=== PATIENT | female | born 1980 | race American Indian/Alaskan Native ===

== ENCOUNTER 2018-12-12 07:20 | Emergency (ER) | payer BC, OTHER ==
[2018-12-12] MEDS ORDERED: DILAUDID IV ONE ×2 (07:28→08:40)
[2018-12-12] MEDS ORDERED: TORADOL IV ONE (07:28)
[2018-12-12] MEDS ORDERED: ZOFRAN IV ONE (07:28)
--- NOTE | 2018-12-12 08:20 | XRay Report ---
RIGHT ANKLE, 3 views: History: right ankle pain after fall. Bone mineralization is normal. A complex fracture dislocation is identified. An oblique and slightly comminuted fracture is identified in the distal fibula approximately 8 cm from the ankle joint. A butterfly fragment is identified posteriorly measuring 5.3 cm. There is mild medial angulation at the fracture site measuring 16 degrees but no significant displacement. There is also a transverse fracture at the base of the medial malleolus with 1.5 cm lateral displacement. There is lateral subluxation of the talar dome with respect to the distal tibia as well. The hindfoot is grossly intact. Large plantar spur is noted. IMPRESSION: Comminuted and mildly angulated distal fibula fracture. Transverse fracture at the base of the medial malleolus with lateral subluxation of the talus.
[2018-12-12] MEDS ORDERED: AMIDATE IV ONE (08:41)
--- NOTE | 2018-12-12 08:58 | Emergency Department Report ---
ED Lower Extremity HPI - General Chief Complaint: Fall Stated Complaint: LEG INJURY/FALL Time Seen by Provider: 12/12/18 07:25 Source: patient Mode of arrival: Wheelchair Limitations: No Limitations - History of Present Illness Initial Comments: 37-year-old female with a Past medical or surgical history presents to the Hospital complains of right ankle pain status post fall. 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 The patient presents with right ankle deformity with fluids rotated externally and medial ankle abrasion. Patient denies any other pain or injury. No head injury or LOC reported. - Related Data Previous Rx's Medication Instructions Recorded Last Taken Type HYDROcodone/APAP 5-325 [[place] 1 each PO Q6HR PRN #20 tablet 12/12/18 Unknown Rx 5/325] Ibuprofen [Motrin] 800 mg PO Q8HR PRN #30 tablet 12/12/18 Unknown Rx Allergies Allergy/AdvReac Type Severity Reaction Status Date / Time No Known Allergies Allergy Unverified 12/12/18 07:43 ED Review of Systems ROS: Stated complaint: LEG INJURY/FALL Other details as noted in HPI Comment: All other systems reviewed and negative ED Past Medical Hx - Past Medical History Hx Hypertension: Yes - Surgical History Past Surgical History?: No - Social History Smoking Status: Light Tobacco Smoker Substance Use Type: None - Medications Home Medications: Home Medications Medication Instructions Recorded Confirmed Last Taken Type HYDROcodone/APAP 5-325 [[place] 1 each PO Q6HR PRN #20 tablet 12/12/18 Unknown Rx 5/325] Ibuprofen [Motrin] 800 mg PO Q8HR PRN #30 tablet 12/12/18 Unknown Rx ED Physical Exam - General Limitations: No Limitations - Other Other exam information: General: No limitations, patient is alert in no acute distress Head exam: Atraumatic, normocephalic Eyes exam: Normal appearance ENT: Moist mucous membrane, normal oropharynx Neck exam: Normal inspection, full range of motion, no meningismus nontender Respiratory exam: Clear to auscultation bilateral, no wheezes, rales, crackles Cardiovascular: Normal rate and rhythm Abdomen: Soft, nondistended, and nontender, with normal bowel sounds, no rebound, or guarding Extremity: Right ankle deformity with right foot rotated laterally and medial ankle abrasion. 2+ DP pulse Back: Normal Inspection, full range of motion, no tenderness Neurologic: Alert, oriented x3, cranial nerves intact, no motor or sensory deficit Psychiatric: normal affect, normal mood Skin: Warm, dry, intact ED Course Vital Signs 12/12/18 12/12/18 12/12/18 07:29 07:30 07:40 Temperature Temperature [ Pre-Procedure] Pulse Rate 88 Pulse Rate [Pre -Procedure] Respiratory 22 16 Rate Respiratory Rate [Pre- Procedure] Blood Pressure 143/66 143/66 Blood Pressure [Pre-Procedure] O2 Sat by Pulse 100 100 Oximetry O2 Sat by Pulse Oximetry [Pre- Procedure] 12/12/18 12/12/18 12/12/18 07:44 07:45 08:00 Temperature Temperature [ Pre-Procedure] Pulse Rate 89 97 H Pulse Rate [Pre -Procedure] Respiratory 12 25 H Rate Respiratory Rate [Pre- Procedure] Blood Pressure 143/66 147/101 Blood Pressure [Pre-Procedure] O2 Sat by Pulse 100 99 99 Oximetry O2 Sat by Pulse Oximetry [Pre- Procedure] 12/12/18 12/12/18 12/12/18 08:11 09:07 09:32 Temperature 98.7 F Temperature [ 97.8 F Pre-Procedure] Pulse Rate Pulse Rate [Pre 107 H -Procedure] Respiratory Rate Respiratory 22 Rate [Pre- Procedure] Blood Pressure Blood Pressure 162/85 [Pre-Procedure] O2 Sat by Pulse 100 Oximetry O2 Sat by Pulse 100 Oximetry [Pre- Procedure] - Consultations Consultation #1: 12/12/18 09:50 case d/w Dr Alon wright. He reviewed pre and post reduction films. follow up advised. Surgery will likely be indicated. - Moderate Sedation Indications: fracture/dislocation redu ASA Class: III Mallampati Airway Score: 1 Preparation: registered nurse cardiac applied, pulse oximeter, capnometry used, supplemental O2 applied, suction/airway equipment at bedside, IV secured IV Etomidate Dose (mgs): 10 Complications: none Interventions: oxygen applied Patient Tolerated Procedure: well - Orthopedic Splinting/Casting Injury #1 Side: right Lower Extremity Injury Location: lower leg Lower Extremity Immobilizer: posterior splint, stirrup splint Other Orthopedic Equipment: crutches ED Lower Extremity MDM - Radiology Data Radiology results: report reviewed, image reviewed (post reduction film reviewed with improved alignment. (reviewed by ortho) offical report pending) RIGHT ANKLE, 3 views: History: right ankle pain after fall. Bone mineralization is normal. A complex fracture dislocation is identified. An oblique and slightly comminuted fracture is identified in the distal fibula approximately 8 cm from the ankle joint. A butterfly fragment is identified posteriorly measuring 5.3 cm. There is mild medial angulation at the fracture site measuring 16 degrees but no significant displacement. There is also a transverse fracture at the base of the medial malleolus with 1.5 cm lateral displacement. There is lateral subluxation of the talar dome with respect to the distal tibia as well. The hindfoot is grossly intact. Large plantar spur is noted. IMPRESSION: Comminuted and mildly angulated distal fibula fracture. Transverse fracture at the base of the medial malleolus with lateral subluxation of the talus. - Differential Diagnosis fxt, contusion, sprain Critical Care Time: No Critical care attestation.: If time is entered above; I have spent that time in minutes in the direct care of this critically ill patient, excluding procedure time. ED Disposition Clinical Impression: Closed right ankle fracture Disposition: TO HOME OR SELFCARE Is pt being admited?: No Does the pt Need Aspirin: No Condition: Stable Instructions: Ankle Fracture (ED) Additional Instructions: Take the medication as prescribed. Follow up with your doctor or the clinic/doctor provided. Return if symptoms worsen as indicated by your discharge instructions Prescriptions: Ibuprofen [Motrin] 800 mg PO Q8HR PRN #30 tablet PRN Reason: Pain, Moderate (4-6) HYDROcodone/APAP 5-325 [[place] 5/325] 1 each PO Q6HR PRN #20 tablet PRN Reason: Pain Referrals: BELLE CORDOVA MD [Staff Physician] - 3-5 Days (ortho ) PRIMARY MD GEORGE [Primary Care Provider] - 3-5 Days Time of Disposition: 10:54
[2018-12-12 09:37] VITALS: BP 162/85
--- NOTE | 2018-12-12 10:56 | XRay Report ---
RIGHT ANKLE, 2 VIEWS History: Right ankle fracture, status post reduction. Findings: Compared to the right ankle films performed earlier today at 0744 hours. The previously described distal fibular fracture, medial malleolus fracture and lateral subluxation at the ankle joint has been reduced and are in anatomic alignment. A splint has been applied. Impression: Successful reduction of the fracture dislocation of the right ankle.
== END 2018-12-12 12:29 | disposition home or self-care (01) ==
LOC: ED 07:20
DX: S82.891A Other fracture of right lower leg, initial encounter for closed fracture (principal); I10 Essential (primary) hypertension; F17.200 Nicotine dependence, unspecified, uncomplicated; X50.1XXA Overexertion from prolonged static or awkward postures, initial encounter; Y93.89 Activity, other specified; Y92.89 Other specified places as the place of occurrence of the external cause; Y99.8 Other external cause status
CPT/HCPCS: 29515; 73600; 96374; 96375; 96376; 99284; J1170; J1885; J2405

== ENCOUNTER 2018-12-18 07:33 | Day surgery (SDC) | payer OTHER ==
[~2018-12-18 07:33] MED LIST: ANCEF/STERILE WATER 2 GM/20 ML IV NR; LACTATED RINGERS 1,000 ML IV SCH; SUBLIMAZE IV PRN; VERSED IV NR
[2018-12-18] MEDS ORDERED: MARCAINE 0.5% INFILTRATI ONE (09:01)
[2018-12-18] MEDS ORDERED: XYLOCAINE MPF 2% ONE (09:10)
[2018-12-18] MEDS ORDERED: SUBLIMAZE ONE (09:10)
[2018-12-18] MEDS ORDERED: DIPRIVAN 10 MG/ML IV ONE (09:10)
[2018-12-18] MEDS ORDERED: DECADRON ONE (09:10)
[2018-12-18] MEDS ORDERED: ZOFRAN ONE (09:10)
[2018-12-18] MEDS ORDERED: NACL 0.9% IR ONE (11:01)
[2018-12-18] MEDS ORDERED: DILAUDID ONE (11:59)
[2018-12-18] MEDS ORDERED: TORADOL ONE (12:01)
--- NOTE | 2018-12-18 12:08 | Procedure Note ---
Date of procedure: 12/18/18 Pre-op diagnosis: displaced fracture right ankle with disruption of the syndesmosis Post-op diagnosis: same Procedure: Open reduction internal fixation right ankle with syndesmotic fixation Procedure The patient was brought to the OR after being given a femoral nerve block and preoperative holding. Was then placed onto the OR table in a supine position following induction with Mac anesthesia the patient's right lower extremity was prepped and draped in the usual sterile manner. A timeout procedure was done to identify the patient and the correct operative site. The leg was then exsanguinated followed by inflation of the pneumatic tourniquet to 300 mmHg a lateral incision was made over the distal third portion of the tibia this taken down sharply through skin and subcutaneous. Fracture site was identified the fragments were manipulated into a reduced position 10 hole one third semitubular plate was applied with nonlocking screws and AP and lateral view was obtained showing good reduction at the fracture site Medial incision was made over the distal tibia again this taken down sharply through skin and subcutaneous the neurovascular structures were identified and retracted out of the operative field Medial malleolus fragment was manipulated into a reduced position a temporary K wire was used to fix this reduction following this to 4.0 cancellus screws were inserted under C-arm visualization following this the syndesmosis disruption was addressed using a [employer] juggernaut a 2.9 drill bit was used to enter the distal fibula as well as the tibia care was taken not to penetrate the far cortex of the tibia A 3.2 drill bit was used to enlarge the tunnel and ending in the fibula nicely juggernaut fixation device was inserted care was taken to tension the juggernaut device with the ankle and maximum dorsiflexion AP and lateral views were obtained showing good reduction at the syndesmosis next the wound was copiously irrigated and was closed and a standard routine fashion. Dressings were applied as well as a well-padded posterior splint the patient tolerated procedure there are occasions she was sent to postanesthesia recovery in a stable condition Anesthesia: MAC, regional Surgeon: BELLE CORDOVA Wire Twisting Machine Operator: ALPHONSO BAKER Estimated blood loss: minimal Pathology: none Condition: stable Disposition: PACU
[2018-12-18] MEDS ORDERED: DILAUDID IV PRN (12:09)
--- NOTE | 2018-12-18 12:09 | Anesthesia Day of Surgery ---
Anesthesia Day of Surgery - Day of Surgery Patient Examined: Yes Patient H&P Reviewed: Yes Patient is NPO: Yes
--- NOTE | 2018-12-18 12:09 | Anesthesia Consultation ---
Anesthesia Consult and Med Hx Date of service: 12/18/18 - Airway Anesthetic Teeth Evaluation: Good (braces) ROM Head & Neck: Adequate Mental/Hyoid Distance: Adequate Mallampati Class: Class III Intubation Access Assessment: Possibly Difficult - Pulmonary Exam CTA: Yes - Cardiac Exam Cardiac Exam: RRR - Pre-Operative Health Status ASA Pre-Surgery Classification: ASA2 Proposed Anesthetic Plan: General Nerve Block: adductor canal - Pulmonary Hx Smoking: No Hx Sleep Apnea: No (MAYLIN PRE SCREEN HIGH RISK) - Cardiovascular System Hx Hypertension: No - Central Nervous System CVA: No - Gastrointestinal Hx Gastroesophageal Reflux Disease: No - Endocrine Hx Renal Disease: No Hx Liver Disease: No Hx Insulin Dependent Diabetes: No - Other Systems Hx Cancer: No Hx Obesity: Yes - Additional Comments Anesthesia Medical History Comments: No prior GA.
[2018-12-18] MEDS ORDERED: LACTATED RINGERS 1,000 ML ONE (12:22)
[2018-12-18 14:13] VITALS: BP 154/96
--- NOTE | 2018-12-18 17:01 | Post Anesthesia Evaluation ---
- Post Anesthesia Evaluation Patient Participated: Yes Airway Patent: Yes Stable Respiratory Function: Yes Nausea/Vomiting: No Temp > 96.8F: Yes Pain Manageable: Yes Adequeate Hydration: Yes Anesthesia Complications: No
--- NOTE | 2018-12-19 07:33 | XRay Report ---
INTRAOPERATIVE RIGHT ANKLE RADIOGRAPHS INDICATION: Right ankle fracture. COMPARISON: 12/12/2018. IMAGES/CINE CLIPS: 2 FINDINGS: Intraoperative fluoroscopic guidance provided for Dr. hCi. AP and lateral views now demonstrate fractured medial malleolar stabilization by 2 threaded screws. Comminuted distal fibular shaft fracture stabilization by a lateral plate anchored with multiple screws also noted with overall improved AP alignment while grossly stable on the lateral view. Bony detail though limited. CONCLUSION: Intraoperative fluoroscopic guidance provided, as described. Thank you for the opportunity to participate in this patient's care.
== END 2018-12-18 07:34 | disposition home or self-care (01) ==
LOC: OR 07:33
PROVIDERS: ATTEND Orthopaedic Surgery
DX: S82.891A Other fracture of right lower leg, initial encounter for closed fracture (principal); S93.491A Sprain of other ligament of right ankle, initial encounter; Z79.899 Other long term (current) drug therapy; E66.9 Obesity, unspecified; Z68.41 Body mass index [BMI] 40.0-44.9, adult; Z98.890 Other specified postprocedural states; X58.XXXA Exposure to other specified factors, initial encounter; Y93.89 Activity, other specified; Y92.89 Other specified places as the place of occurrence of the external cause; Y99.8 Other external cause status
CPT/HCPCS: 27766; 27829; 64450; 73600; C1713; J0690; J1100; J1170; J1885; J2250; J2405; J2704; J3010; J7120

== ENCOUNTER 2019-03-18 16:06 | Outpatient (CLI) | payer OTHER ==
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
== END 2019-03-18 16:07 | disposition home or self-care (01) ==
LOC: XRAY 16:06
PROVIDERS: ATTEND Orthopaedic Surgery
DX: S82.831A Other fracture of upper and lower end of right fibula, initial encounter for closed fracture (principal); E66.9 Obesity, unspecified; X58.XXXA Exposure to other specified factors, initial encounter; Y93.89 Activity, other specified; Y92.89 Other specified places as the place of occurrence of the external cause; Y99.8 Other external cause status

== ENCOUNTER 2019-06-25 12:28 | Outpatient (CLI) | payer OTHER ==
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
== END 2019-06-25 12:29 | disposition home or self-care (01) ==
LOC: XRAY 12:28
PROVIDERS: ATTEND Orthopaedic Surgery
DX: S82.891A Other fracture of right lower leg, initial encounter for closed fracture (principal); X58.XXXA Exposure to other specified factors, initial encounter; Y93.89 Activity, other specified; Y92.89 Other specified places as the place of occurrence of the external cause; Y99.8 Other external cause status

== ENCOUNTER 2019-10-27 10:46 | Emergency (ER) | payer OTHER, BC ==
[2019-10-27 10:57] VITALS: BP 144/92
[2019-10-27] MEDS ORDERED: IBUPROFEN 800 MG TAB PO ONE (13:01)
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
== END 2019-10-27 14:52 | disposition home or self-care (01) ==
LOC: ED 10:46
DX: S16.1XXA Strain of muscle, fascia and tendon at neck level, initial encounter (principal); S39.012A Strain of muscle, fascia and tendon of lower back, initial encounter; S70.02XA Contusion of left hip, initial encounter; M25.512 Pain in left shoulder; Z79.899 Other long term (current) drug therapy; V89.2XXA Person injured in unspecified motor-vehicle accident, traffic, initial encounter; Y93.89 Activity, other specified; Y92.410 Unspecified street and highway as the place of occurrence of the external cause; Y99.8 Other external cause status
CPT/HCPCS: 72040; 72050; 72100

== ENCOUNTER 2020-02-18 10:01 | Outpatient (CLI) | payer BC ==
[2020-02-18 11:05] LABS: Alanine Aminotransferase 21 units/L (7-56); Albumin 3.7 g/dL (3.9-5); BUN/Creatinine Ratio 12; Blood Urea Nitrogen 12 mg/dL (7-17); Calcium 8.9 mg/dL (8.4-10.2); Chol/HDL Ratio 3.88 %; HDL Cholesterol 53 mg/dL (40-59); Hemolysis Index 2; LDL Cholesterol,Direct 146 mg/dL (50-130)
[2020-02-23 15:25] LABS: Vitamin D, 25-OH, D2 <4 ng/mL
== END 2020-02-18 10:02 | disposition home or self-care (01) ==
LOC: LAB 10:01
PROVIDERS: ATTEND Internal Medicine
DX: Z00.00 Encounter for general adult medical examination without abnormal findings (principal); Z13.220 Encounter for screening for lipoid disorders; Z13.29 Encounter for screening for other suspected endocrine disorder; Z13.21 Encounter for screening for nutritional disorder
CPT/HCPCS: 36415; 80053; 80061; 82306; 82607; 83036; 84443